=== PATIENT | male | born 1960 | race Caucasian/White ===

== ENCOUNTER 2022-05-17 18:50 | Emergency (ER) | payer BC ==
[~2022-05-17] VITALS: Ht 177.8 cm; Wt 81.0 kg
[2022-05-17 19:00] VITALS: BP 125/88
== END 2022-05-17 22:05 | disposition left against medical advice (07) ==
LOC: ER 18:50
DX: Z53.21 Procedure and treatment not carried out due to patient leaving prior to being seen by health care provider (principal)